=== PATIENT | female | born 1955 | race Caucasian/White ===

== ENCOUNTER → 2021-01-17 | Outpatient (CLI) | payer MEDICARE ==
[~2021-01-17] MED LIST: AMLO2.5T5 PO; ATOR-2 PO; BUME1TAB21 PO; CHOL100011 PO; CHOL200024 PO; HYDR-2214 PO; LEVO150T5 PO; LISI1TAB20 PO; LISI1TAB39 PO; MESA1.2T PO; MESA800T2 PO; METF500T17 PO; OMEG1CAP34 PO; POTA10TA5 PO; RIVA10TA2 PO; SIMV20TA19 PO; SOTA80TA PO; VITA400C14 PO; VITAMIN E PO
[2021-01-17 17:33] LABS: MICROSCOPIC AUTO
== END | disposition home or self-care (01) ==
LOC: LAB 17:05
PROVIDERS: ATTEND Family Medicine
DX: N39.0 Urinary tract infection, site not specified (principal)
CPT/HCPCS: 81001; 87077; 87086; 87186

== ENCOUNTER → 2021-06-26 | Outpatient (CLI) | payer MEDICARE | END | disposition home or self-care (01) | LOC: CFH 09:24 | PROVIDERS: ATTEND Family Medicine | DX: M85.88 Other specified disorders of bone density and structure, other site (principal); N95.8 Other specified menopausal and perimenopausal disorders ==